=== PATIENT | male | born 2000 | race Caucasian/White ===

== ENCOUNTER 2019-05-03 00:03 | Emergency (ER) | payer OTHER, SELFPAY ==
[2019-05-03 00:04] VITALS: BP 124/79; PULSE 75; RESP 15; TEMP 37.2; O2SAT 98; BMI 23.7
--- NOTE | 2019-05-03 00:16 | RAD_ITS ---
STUDY: X-RAY - LEFT ANKLE REASON FOR EXAM: Male, 19 years old. Injury TECHNIQUE: 3 view(s) of the ankle. COMPARISON: None. FINDINGS: Normal visualized distal tibia and fibula. Normal medial and lateral malleoli. Normal tibiotalar articulation and ankle mortise. Normal visualized talus and calcaneus. The visualized subtalar, talonavicular, calcaneocuboid and tarsal articulations are normal. Lateral soft tissue swelling. RAD/Ankle min 3 Views IMPRESSION: No acute osseous injury is evident. Electronically Signed: Ronald Morales MD at 0:37 EDT Tel , Service support ,
--- NOTE | 2019-05-03 00:18 | ED.VIS.GEN ---
History of Present Illness Chief Complaint: Lower Extremity Injury Detail of Chief Complaint: Left ankle injury Informant: Patient Onset: Today Context: Sudden Onset Current Severity: Mild Maximum Severity: Moderate Narrative: Patient presents after rolling his left ankle while playing volleyball tonight. He had difficulty with weightbearing. He did take Tylenol already for pain. He denies any other injury. Past Medical History - Allergies and Home Meds Allergies/Adverse Reactions: Allergies No Known Allergies Allergy (Verified 05/03/19 00:07) Primary Care Physician: John Storey III, MD [Primary Care Provider] - Prior records reviewed: Yes Past Medical History: - - Reviewed Lives: With Family Smoking Status: Never smoker Review of Systems General: Denies: Chills, Fever Eyes: Denies: Visual changes - bilaterally Cardiovascular: Denies: Chest pain Respiratory: Denies: Dyspnea Gastrointestinal: Denies: Abdominal pain Musculoskeletal: Reports: Swelling, Extremity Pain. Denies: Neck pain, Back pain Skin: Denies: Wounds Neurological: Denies: Parasthesia, Numbness Hematologic: Denies: Easy bruising Allergy: Denies: Uticaria, Swelling of the mouth Physical Exam Vital Signs/Narrative: Vital Signs Temp Pulse Resp BP Pulse Ox 05/03/19 00:04 98.9 F 75 15 124/79 H 98 Inital Vital Signs reviewed: Yes General: Well nourished, Well developed Head: Normocephalic ENT: Moist mucous membranes Neck: Supple Cardiovascular: Regular rate Respiratory: No distress Abdomen: Soft Extremities: - - Tenderness palpation and edema of the lateral malleolus of the left ankle. Minimal tenderness along the medial malleolus. No tenderness of the foot itself with strong distal pulses and normal sensation. No tenderness at the knee or proximal fibula. Skin: Normal color Neurological: Alert, Oriented x3 Psychological: Normal affect Diagnostic/Tx/Re-eval 3 x-ray views of the left ankle are obtained and per my review reveal no evidence of acute fracture. Patient be placed in a stirrup splint and given crutches. He may weight-bear as tolerated. He will be referred to orthopedics if not improving. ED Disposition - Plan for ED Patient: Disposition: Home or Assisted Living Diagnosis: Ankle sprain Instructions: Sprain, Ankle, with X-Ray Referrals: John Storey III, MD [Primary Care Provider] - Dwight Pineda DO [STAFF PHYSICIAN] - As Needed
== END 2019-05-03 00:46 | disposition home or self-care (01) ==
LOC: ED 00:43
PROVIDERS: Emergency Provider Emergency Medicine; Family Provider Family Medicine; PCP Family Medicine
DX: S93.402A Sprain of unspecified ligament of left ankle, initial encounter (principal); X50.1XXA Overexertion from prolonged static or awkward postures, initial encounter; Y93.68 Activity, volleyball (beach) (court); Y92.9 Unspecified place or not applicable
CPT/HCPCS: 73610; 99284